=== PATIENT | female | born 1990 | race Caucasian/White ===

== ENCOUNTER 2017-10-06 09:31 | Emergency (ER) | payer SELFPAY ==
[~2017-10-06] VITALS: Ht 165.1 cm; Wt 98.9 kg
[~2017-10-06 09:31] MED LIST: BIRTH CONTROL PILLS PO
[2017-10-06 09:39] VITALS: BP_SYST 162
[2017-10-06 10:19] VITALS: BP_SYST 140
== END 2017-10-06 10:18 | disposition home or self-care (01) ==
LOC: SED 09:31
DX: S63.91XA Sprain of unspecified part of right wrist and hand, initial encounter (principal); S60.221A Contusion of right hand, initial encounter; W18.30XA Fall on same level, unspecified, initial encounter; Y93.89 Activity, other specified; Y92.89 Other specified places as the place of occurrence of the external cause; Y99.2 Volunteer activity
CPT/HCPCS: 81025; 99284

== ENCOUNTER 2023-07-30 15:07 | Emergency (ER) | payer MEDICAID ==
[~2023-07-30] VITALS: Ht 167.6 cm; Wt 78.0 kg
[2023-07-30 15:17] VITALS: BP_SYST 165; PULSE 85; RESP 18; TEMP 98.3; O2SAT 98
[2023-07-30] MEDS ORDERED: HYDR-3917 PO (16:27)
[2023-07-30 16:39] VITALS: BP_SYST 165; PULSE 85; RESP 18; TEMP 98.3; O2SAT 98
== END 2023-07-30 16:39 | disposition home or self-care (01) ==
LOC: SED 15:07
DX: S92.424A Nondisplaced fracture of distal phalanx of right great toe, initial encounter for closed fracture (principal); Z79.899 Other long term (current) drug therapy; W20.8XXA Other cause of strike by thrown, projected or falling object, initial encounter; Y93.89 Activity, other specified; Y92.89 Other specified places as the place of occurrence of the external cause; Y99.8 Other external cause status
CPT/HCPCS: 99283